=== PATIENT | male | born 1935 | race Native Hawaiian/Other Pacific Islander ===

== ENCOUNTER 2022-10-27 10:54 | Emergency (ER) | payer OTHER ==
[~2022-10-27] VITALS: Ht 167.6 cm; Wt 79.8 kg
[2022-10-27 11:40] LABS: PLATELET COUNT 303 K/uL (142-355)
[2022-10-27 11:51] LABS: POTASSIUM 3.9 mmol/L (3.6-5.2); SODIUM 141 mmol/L (136-145)
[2022-10-27] MEDS ORDERED: DONEPEZIL HYDRO10 MG PO (16:03)
[2022-10-27] MEDS ORDERED: DIVALPROEX125 MG PO (16:06)
[2022-10-27] MEDS ORDERED: DICLOFENAC0.1 % OPTH (16:08)
[2022-10-27] MEDS ORDERED: ASPI325T40 PO (16:10)
[2022-10-27] MEDS ORDERED: BUSPIRONE HYDROC5 MG PO (16:11)
[2022-10-27] MEDS ORDERED: CO Q-10100 MG PO (16:14)
[2022-10-27] MEDS ORDERED: CERTAGEN PO (16:14)
[2022-10-27] MEDS ORDERED: METO50TA63 PO (16:16)
[2022-10-27] MEDS ORDERED: VITAMIN D1000 UNI1 PO (16:18)
[2022-10-27] MEDS ORDERED: QUETIAPINE50 MG PO (16:25)
== END 2022-10-27 12:25 | disposition other institution (70) ==
LOC: ED 10:54
PROVIDERS: Internal Medicine
DX: F03.911 Unspecified dementia, unspecified severity, with agitation (principal); Z11.52 Encounter for screening for COVID-19; Z04.6 Encounter for general psychiatric examination, requested by authority
CPT/HCPCS: 80053; 80143; 80179; 80320; 85027; 87635; 99283; U0003